=== PATIENT | male | born 1970 | race Two or more races ===

== ENCOUNTER 2023-09-28 19:09 | Emergency (ER) | payer OTHER ==
[2023-09-28 19:25] VITALS: BP 120/80; PULSE 94; RESP 20; TEMP 97.9; BMI 27.3
[2023-09-28 20:35] LABS: BASO % 0.5 % (0-2.0); EOS % 5.2 % (0-4.5); HEMATOCRIT 43.9 % (35.4-49); HEMOGLOBIN 14.7 GM/dL (11.7-16.9); LYMPH % 38.6 % (8-40); MCH 28.7 pg (25.7-33.7); MCHC 33.6 g/dl (32.0-35.9); MEAN CELL VOLUME 85.5 fl (80-96); MONO % 8.2 % (3.8-10.2); NEUT % 47.5 % (42.8-82.8); PLATELET COUNT 242 10^3/uL (134-434); RBC 5.13 M/mm3 (4.00-5.60); RDW 13.8 % (11.9-15.9); WHITE BLOOD COUNT 6.4 K/mm3 (4.0-10.0)
[2023-09-28] MEDS ORDERED: METOCLOPRAMIDE HCL INJECTION 10 MG/2 ML VIAL ONE (20:54)
[2023-09-28] MEDS ORDERED: ACETAMINOPHEN INJECTION 100 ML IVPB ONE (20:54)
[2023-09-28 20:57] LABS: POTASSIUM 4.2 mmol/L (3.5-5.1)
[2023-09-28 20:59] LABS: ALBUMIN 3.6 g/dl (3.4-5.0); BLOOD UREA NITROGEN 15.7 mg/dL (7-18); MAGNESIUM 2.7 mg/dL (1.8-2.4)
[2023-09-28 21:02] LABS: CREATININE 1.3 mg/dL (0.55-1.3)
[2023-09-28] MEDS: ACETAMINOPHEN 1000 MG/100 ML BAG IVPB ONE (21:03)
[2023-09-28] MEDS: METOCLOPRAMIDE HCL INJECTION 10 MG/2 ML VIAL IVPUSH ONE (21:03)
[2023-09-28 21:04] LABS: BILIRUBIN,TOTAL 0.4 mg/dL (0.2-1)
[2023-09-28] MEDS: LACTATED RINGERS SOLUTION 1000 ML INFUS.BAG IV ONE (21:26)
[2023-09-28] MEDS ORDERED: KETOROLAC TROMETHAMINE 15 MG/ML VIAL ONE (22:01)
[2023-09-28] MEDS: KETOROLAC TROMETHAMINE 30 MG/1 ML VIAL IVPUSH ONE (22:08)
[2023-09-29] MEDS ORDERED: LACTATED RINGERS SOLUTION 1000 ML INFUS.BAG IV ONE (20:11)
== END 2023-09-28 23:02 | disposition home or self-care (01) ==
LOC: JER 19:09
PROC: 3E033GC Introduction of Other Therapeutic Substance into Peripheral Vein, Percutaneous Approach (ICD-10-PCS; principal; 2023-09-28)
PROC: 3E033NZ Introduction of Analgesics, Hypnotics, Sedatives into Peripheral Vein, Percutaneous Approach (ICD-10-PCS; 2023-09-28)
PROC: 3E0333Z Introduction of Anti-inflammatory into Peripheral Vein, Percutaneous Approach (ICD-10-PCS; 2023-09-28)
DX: R51.9 Headache, unspecified (principal); H10.33 Unspecified acute conjunctivitis, bilateral
CPT/HCPCS: 36415; 70450-TC; 80053; 83735; 85025; 99284-25; J0131